=== PATIENT | male | born 1975 | race Caucasian/White ===

== ENCOUNTER 2017-12-27 08:03 | Emergency (ER) | payer MEDICAID ==
--- NOTE | 2017-12-27 08:22 | EDM.PDOC ---
<Mainor De Paz M - Last Filed: 12/27/17 08:29> ED HPI GENERAL MEDICAL PROBLEM - General Stated Complaint: CHEST PAIN Time Seen by Provider: 12/27/17 08:03 Source of Information: Reports: Patient, Family History Limitations: Reports: No Limitations - History of Present Illness INITIAL COMMENTS - FREE TEXT/NARRATIVE: 42 y.o.wm with a H/O Non Hodgkin's lymphoma Stage 4, came to the ed with his family due to left ant chest wall pain and abs. pain. Pt is seen by an Oncologist at [facility] in [place]. Last BM this morning, no N/V. Pt feels weak and had poor PO intake. Pt is a poor historian. Onset Date: 12/26/17 Onset Time: 07:00 Duration: Hour(s):, Intermittent Location: Reports: Chest (left ant chest wall), Abdomen Quality: Reports: Ache, Burning, Dull, Pressure, Same as Previous Episode Severity: Moderate Improves with: Reports: Rest Worsens with: Reports: Movement Context: Reports: Sick Contact Associated Symptoms: Reports: Chest Pain, Weakness - Related Data Allergies Allergy/AdvReac Type Severity Reaction Status Date / Time cephalexin [From Keflex] Allergy Swelling Verified 12/27/17 08:56 Home Meds: Home Meds Gemfibrozil 600 mg PO BID 10/05/16 [History] buPROPion [Wellbutrin] 100 mg PO BID 10/05/16 [History] ClonazePAM [KlonoPIN] 0.5 mg PO TID 12/27/17 [History] Omeprazole 20 mg PO DAILY 12/27/17 [History] PARoxetine [Paxil] 20 mg PO BID 12/27/17 [History] QUEtiapine [SEROquel XR] 50 mg PO BID PRN 12/27/17 [History] hydrOXYzine HCl [hydrOXYzine] 50 mg PO TID PRN 12/27/17 [History] lamoTRIgine 100 mg PO BEDTIME 12/27/17 [History] lamoTRIgine 200 mg PO 08,17 12/27/17 [History] traMADol HCl [Tramadol HCl] 50 mg PO QID #12 tablet 12/27/17 [Rx] Past Medical History Cardiovascular History: Reports: High Cholesterol, Hypertension Gastrointestinal History: Reports: GERD Musculoskeletal History: Reports: Fracture Psychiatric History: Reports: Anxiety, Depression, Psych Hospitalization(s) Endocrine/Metabolic History: Reports: Obesity/BMI 30+ - Infectious Disease History Infectious Disease History: Reports: Chicken Pox - Past Surgical History Musculoskeletal Surgical History: Reports: Other (See Below) Social & Family History - Tobacco Use Smoking Status *Q: Current Every Day Smoker Years of Tobacco use: 21 Packs/Tins Daily: 2 - Caffeine Use Caffeine Use: Reports: Coffee, Soda - Recreational Drug Use Recreational Drug Use: No ED ROS GENERAL - Review of Systems Review Of Systems: See Below Constitutional: Reports: Weakness HEENT: Reports: No Symptoms Respiratory: Reports: Pleuritic Chest Pain Cardiovascular: Reports: Chest Pain Endocrine: Reports: No Symptoms GI/Abdominal: Reports: Abdominal Pain, Constipation : Reports: No Symptoms Musculoskeletal: Reports: No Symptoms Skin: Reports: No Symptoms Neurological: Reports: No Symptoms Psychiatric: Reports: No Symptoms Hematologic/Lymphatic: Reports: No Symptoms Immunologic: Reports: No Symptoms EKG INTERPRETATION EKG Date: 12/27/17 Time: 08:20 Rhythm: NSR Rate (Beats/Min): 85 [place]: Normal P-Wave: Present QRS: Normal ST-T: Normal QT: Normal Comparison: NA - No Prior EKG Course - Vital Signs Text/Narrative:: : 42 y.o.wm with a H/O Non Hodgkin's lymphoma Stage 4, came to the ed with his family due to left ant chest wall pain and abs. pain. Pt is seen by an Oncologist at [facility] in [place]. Last BM this morning, no N/V. Pt feels weak and had poor PO intake. Pt is a poor historian. Impression: Pleuritic chest pain, abd.pain Pt was signed out to Dr. Vasquez at 9 am due to shift changes, pending labs/ imaging/tx Last Recorded V/S: Last Vital Signs Temp 36.4 C 12/27/17 08:03 Pulse 93 12/27/17 08:03 Resp 18 12/27/17 08:03 BP 129/99 H 12/27/17 08:03 Pulse Ox 96 12/27/17 08:03 - Orders/Labs/Meds Orders: Active Orders 24 hr Category Date Time Status Abdomen 2V AP Flat Upright [CR] Stat Exams 12/27/17 08:13 Taken Chest 2V [CR] Stat Exams 12/27/17 08:13 Taken Sodium Chloride 0.9% [Saline Flush] Med 12/27/17 08:29 Active 10 ml FLUSH ASDIRECTED PRN Saline Lock Insert [OM.PC] Routine Oth 12/27/17 08:29 Ordered EKG 12 Lead [EK] Routine Ther 12/27/17 08:13 Ordered Medication Orders Sodium Chloride (Saline Flush) 10 ml FLUSH ASDIRECTED PRN PRN Reason: Keep Vein Open Last Admin: 12/27/17 08:29 Dose: 10 ml Labs: Laboratory Tests 12/27/17 12/27/17 12/27/17 Range/Units 08:30 08:30 08:30 WBC 7.6 (4.5-12.0) X10-3/uL RBC 5.98 H (4.30-5.75) x10(6)uL Hgb 14.8 (11.5-15.5) g/dL Hct 45.4 (30.0-51.3) % MCV 75.9 L (80-96) fL MCH 24.7 L (27.7-33.6) pg MCHC 32.6 (32.2-35.4) g/dL RDW 13.5 (11.5-15.5) % Plt Count 367 (125-369) X10(3)uL MPV 7.1 L (7.4-10.4) fL Neut % (Auto) 74.7 (46-82) % Lymph % (Auto) 13.5 (13-37) % Barry % (Auto) 5.3 (4-12) % Eos % (Auto) 6 H (1.0-5.0) % Baso % (Auto) 0 (0-2) % Neut # (Auto) 5.7 (1.6-8.3) # Lymph # (Auto) 1.0 (0.6-5.0) # Barry # (Auto) 0.4 (0.0-1.3) # Eos # (Auto) 0.5 (0.0-0.8) # Baso # (Auto) 0.0 (0.0-0.2) # Sodium 140 (135-145) mmol/L Potassium 4.3 (3.5-5.3) mmol/L Chloride 102 (100-110) mmol/L Carbon Dioxide 28 (21-32) mmol/L BUN 15 (7-18) mg/dL Creatinine 1.4 H (0.70-1.30) mg/dL Est Cr Clr Drug Dosing TNP Estimated GFR (MDRD) 55 L (>60) BUN/Creatinine Ratio 10.7 (9-20) Glucose 165 H (80-116) mg/dL Calcium 9.2 (8.6-10.2) mg/dL Total Bilirubin 0.3 (0.1-1.3) mg/dL Direct Bilirubin 0.11 (0.10-0.20) mg/dL AST 73 H (5-25) IU/L ALT 108 H (12-36) U/L Alkaline Phosphatase 115 H (56-112) IU/L Creatine Kinase 154 (60-160) IU/L Troponin I < 0.017 L (<0.017-0.056) ng/mL Total Protein 7.5 (6.0-8.0) g/dL Albumin 3.8 (3.5-5.2) g/dL Urine Opiates Screen (NEGATIVE) Ur Oxycodone Screen (NEGATIVE) Ur Propoxyphene Screen (NEGATIVE) Ur Barbituates Screen (NEGATIVE) Ur Tricyclics Screen (NEGATIVE) Ur Phencyclidine Scrn (NEGATIVE) Ur Amphetamine Screen (NEGATIVE) Urine MDMA Screen (NEGATIVE) U Benzodiazepines Scrn (NEGATIVE) U Cocaine Metab Screen (NEGATIVE) U Marijuana (THC) Screen (NEGATIVE) Ethyl Alcohol < 0.03 (<0.03) % 12/27/17 Range/Units 09:57 WBC (4.5-12.0) X10-3/uL RBC (4.30-5.75) x10(6)uL Hgb (11.5-15.5) g/dL Hct (30.0-51.3) % MCV (80-96) fL MCH (27.7-33.6) pg MCHC (32.2-35.4) g/dL RDW (11.5-15.5) % Plt Count (125-369) X10(3)uL MPV (7.4-10.4) fL Neut % (Auto) (46-82) % Lymph % (Auto) (13-37) % Barry % (Auto) (4-12) % Eos % (Auto) (1.0-5.0) % Baso % (Auto) (0-2) % Neut # (Auto) (1.6-8.3) # Lymph # (Auto) (0.6-5.0) # Barry # (Auto) (0.0-1.3) # Eos # (Auto) (0.0-0.8) # Baso # (Auto) (0.0-0.2) # Sodium (135-145) mmol/L Potassium (3.5-5.3) mmol/L Chloride (100-110) mmol/L Carbon Dioxide (21-32) mmol/L BUN (7-18) mg/dL Creatinine (0.70-1.30) mg/dL Est Cr Clr Drug Dosing Estimated GFR (MDRD) (>60) BUN/Creatinine Ratio (9-20) Glucose (80-116) mg/dL Calcium (8.6-10.2) mg/dL Total Bilirubin (0.1-1.3) mg/dL Direct Bilirubin (0.10-0.20) mg/dL AST (5-25) IU/L ALT (12-36) U/L Alkaline Phosphatase (56-112) IU/L Creatine Kinase (60-160) IU/L Troponin I (<0.017-0.056) ng/mL Total Protein (6.0-8.0) g/dL Albumin (3.5-5.2) g/dL Urine Opiates Screen Positive H (NEGATIVE) Ur Oxycodone Screen Negative (NEGATIVE) Ur Propoxyphene Screen Negative (NEGATIVE) Ur Barbituates Screen Negative (NEGATIVE) Ur Tricyclics Screen Positive H (NEGATIVE) Ur Phencyclidine Scrn Negative (NEGATIVE) Ur Amphetamine Screen Negative (NEGATIVE) Urine MDMA Screen Negative (NEGATIVE) U Benzodiazepines Scrn Positive H (NEGATIVE) U Cocaine Metab Screen Negative (NEGATIVE) U Marijuana (THC) Screen Positive H (NEGATIVE) Ethyl Alcohol (<0.03) % Meds: Medications Generic Name Dose Route Start Last Admin Trade Name Freq PRN Reason Stop Dose Admin Sodium Chloride 10 ml 12/27/17 08:29 12/27/17 08:29 Saline Flush FLUSH 10 ml ASDIRECTED PRN Administration Keep Vein Open Discontinued Medications Generic Name Dose Route Start Last Admin Trade Name Freq PRN Reason Stop Dose Admin Ketorolac Tromethamine 30 mg 12/27/17 08:13 12/27/17 08:26 Toradol IVPUSH 12/27/17 08:14 30 mg ONETIME ONE Administration Departure - Departure Disposition: Home, Self-Care 01 Clinical Impression: Muscle strain of chest wall - Discharge Information Prescriptions: traMADol HCl [Tramadol HCl] 50 mg PO QID #12 tablet Instructions: Thoracic Strain, Lowc-el-Gmps Referrals: Dennis Leonard PA-C [Primary Care Provider] - Forms: ED Return to Work/School Form Additional Instructions: For pain and inflammation, take ibuprofen 200 mg 3 tabs and acetaminophen 325 mg 2 tabs 4 times a day. For pain, take tramadol 50 mg 1 tab 4 times a day. No alcohol. Return to work in 3 days. Use heat for 10 minutes 4 times a day for 2 days, longer if needed. See your doctor in 2 days. Return to ED if you are feeling worse. Call your Physician or Return to Emergency Department if: * Your condition worsens in any way. * You develop fever greater than 100.4. * You have vomitting that does not stop with medications. * You have pain that is not controlled with medications. <Ciaran Vasquez - Last Filed: 12/27/17 10:35> ED HPI GENERAL MEDICAL PROBLEM - History of Present Illness INITIAL COMMENTS - FREE TEXT/NARRATIVE: pt seen and evaluated by Dr De Paz, I was asked to f/u at change of shift with XR of chest and abd which are neg pt dx'ed with Stage 4 non Hodgkin's lymphoma in early 2016, tx with CT and RT which was completed 3m ago. Pt states the lymphoma was in his spine and that he had 8 injections of chemo into his spine, that it was not in his chest and abd. He has had recent MRI and PET scan with his oncologist, Dr Silver, whom he last saw 3w ago. pt saw PCP Dr Shahram Robbins in [facility] who did a CxR for a cough, reported as neg. Pt seen here in ED 10/09 with cough that resolved and then came back more recently. 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, missed worked yesterday, off until 2d from now sharp pain with DB has been at L lateral lower hemothorax, tender to touch ED EXAM, GENERAL - Physical Exam Exam: See Below Exam Limited By: No Limitations General Appearance: Alert, WD/WN, No Apparent Distress Ears: Normal External Exam Nose: Normal Inspection, Normal Mucosa, No Blood Throat/Mouth: Normal Inspection, Normal Lips, Normal Teeth, Normal Gums, Normal Oropharynx, Normal Voice, No Airway Compromise Head: Atraumatic, Normocephalic Neck: Normal Inspection, Supple, Non-Tender, Full Range of Motion Respiratory/Chest: No Respiratory Distress, Lungs Clear, Normal Breath Sounds, No Accessory Muscle Use, Other (1+ tender of L lower hemithorax at AAL up / , not localized, some discomfort with change in position) Cardiovascular: Normal Peripheral Pulses, Regular Rate, Rhythm, No Edema, No Gallop, No JVD, Other (2/6 MARINA at [facility]) GI/Abdominal: Normal Bowel Sounds, Soft, Non-Tender, No Organomegaly, No Distention Back Exam: Normal Inspection, Full Range of Motion, NT Extremities: Normal Inspection, Normal Range of Motion, Non-Tender, No Pedal Edema Neurological: Alert, Oriented, CN II-XII Intact, Normal Cognition, No Motor/ Sensory Deficits Psychiatric: Normal Affect Skin Exam: Warm, Dry, Intact, Normal Color, No Rash Departure - Departure Time of Disposition: 10:31 Condition: Good
[2017-12-27] MEDS: Ketorolac 30 MG/ML SDV IVPUSH ONE (08:26)
[2017-12-27] MEDS: Sodium Chloride 0.9% 10 ML Syringe FLUSH PRN (08:29)
[2017-12-27 11:17] VITALS: BP 130/106
--- NOTE | 2017-12-27 15:18 | CR ---
INDICATION: Chest pain. CHEST: PA and lateral views of the chest 12/27/2017 were compared with 2015, again revealing slightly prominent AP diameter and slightly flattened diaphragm leaf on the lateral view, which should be correlated clinically. No definite active infiltrate or effusion could be identified. No free air is noted under the hemidiaphragm leaves. Overlying EKG leads are noted. The heart and mediastinum, as well as the bony thorax, were unremarkable. IMPRESSION: No definite active disease - question a mild degree of obstructive airway disease - correlate clinically. MTDD
--- NOTE | 2017-12-27 15:21 | CR ---
INDICATION: Pain. ABDOMEN: Eight views of the abdomen in supine and upright projections revealed a mild to moderate dextroconcave scoliosis of the lower middle lumbar spine. The pattern of gas and feces is nonspecific without evidence of free air or obstruction. No organomegaly, mass lesions, or pathologic calcifications were identified. Mass density in the lower pelvis is compatible with distended urinary bladder - correlate clinically. IMPRESSION: 1. Nonacute abdomen. 2. Scoliosis lumbar spine. MTDD
== END 2017-12-27 10:45 | disposition home or self-care (01) ==
LOC: FB.ED 08:03
DX: S29.011A Strain of muscle and tendon of front wall of thorax, initial encounter (principal); K21.9 Gastro-esophageal reflux disease without esophagitis; E66.9 Obesity, unspecified; E78.00 Pure hypercholesterolemia, unspecified; I10 Essential (primary) hypertension; Z88.1 Allergy status to other antibiotic agents; Z79.899 Other long term (current) drug therapy; X58.XXXA Exposure to other specified factors, initial encounter
CPT/HCPCS: 36415; 71046; 74019; 80048; 80076; 80305; 82550; 84484; 85025; 93005; 96374; 99284; G0480; J1885; J7050

== ENCOUNTER 2021-03-23 10:35 | Emergency (ER) | payer MEDICAID ==
[2021-03-23] MEDS ORDERED: Sodium Chloride 0.9% 10 ML Syringe FLUSH PRN (10:39)
[2021-03-23] MEDS ORDERED: 50% Dextrose in Water 50 ML Syringe IVPUSH PRN (10:47)
[2021-03-23] MEDS ORDERED: Glucagon,Human Recombinant 1 MG Vial IM PRN (10:47)
[2021-03-23] MEDS ORDERED: Insulin Lispro 100 Unit/ML 3 ML KwikPen SUBCUT ONE (10:50)
[2021-03-23] MEDS ORDERED: Sodium Chloride 0.9% 1,000 ML IV ONE (10:54)
--- NOTE | 2021-03-23 11:01 | EDM.PDOC ---
ED HPI GENERAL MEDICAL PROBLEM - General Chief Complaint: General Stated Complaint: INSULIN Time Seen by Provider: 03/23/21 11:01 Source of Information: Reports: Patient History Limitations: Reports: No Limitations - History of Present Illness INITIAL COMMENTS - FREE TEXT/NARRATIVE: Patient has a h/o T2DM. He ran out of Novolog today, usually takes 12-4 units SC tid. Patient gave himself the last 3 units this morning. His blood sugar was @500 today. Patient endorses dizziness, blurred vision, and tinnitus. He does have refills on the Novolog but pharmacy is closed today. Denies chest pain, sob, fevers, abd pain, or N/V/D. Onset: Today - Related Data Allergies Allergy/AdvReac Type Severity Reaction Status Date / Time cephalexin [From Keflex] Allergy Swelling Verified 12/27/17 08:56 Home Meds: Home Meds Gemfibrozil 600 mg PO BID 10/05/16 [History] buPROPion [Wellbutrin] 100 mg PO BID 10/05/16 [History] ClonazePAM [KlonoPIN] 0.5 mg PO TID 12/27/17 [History] Omeprazole 20 mg PO DAILY 12/27/17 [History] PARoxetine [Paxil] 20 mg PO BID 12/27/17 [History] QUEtiapine [SEROquel XR] 50 mg PO BID PRN 12/27/17 [History] hydrOXYzine HCL [hydrOXYzine] 50 mg PO TID PRN 12/27/17 [History] lamoTRIgine 100 mg PO BEDTIME 12/27/17 [History] lamoTRIgine 200 mg PO 08,17 12/27/17 [History] traMADol HCl [Tramadol HCl] 50 mg PO QID #12 tablet 12/27/17 [Rx] Past Medical History Cardiovascular History: Reports: High Cholesterol, Hypertension Gastrointestinal History: Reports: GERD Musculoskeletal History: Reports: Fracture Psychiatric History: Reports: Anxiety, Depression, Psych Hospitalization(s) Endocrine/Metabolic History: Reports: Diabetes, Type II, Obesity/BMI 30+ Oncologic (Cancer) History: Reports: Non-Hodgkin's Lymphoma, Other (See Below) Other Oncologic History: Stage 4 - Infectious Disease History Infectious Disease History: Reports: Chicken Pox - Past Surgical History Musculoskeletal Surgical History: Reports: Other (See Below) Other Musculoskeletal Surgeries/Procedures:: back surgery Social & Family History - Family History Family Medical History: No Pertinent Family History - Caffeine Use Caffeine Use: Reports: Coffee, Soda ED ROS GENERAL - Review of Systems Review Of Systems: Comprehensive ROS is negative, except as noted in HPI. ED EXAM, GENERAL - Physical Exam Exam: See Below Exam Limited By: No Limitations General Appearance: Alert, WD/WN, No Apparent Distress Eye Exam: Bilateral Eye: EOMI, PERRL Nose: Normal Inspection Throat/Mouth: No Airway Compromise Head: Atraumatic, Normocephalic Neck: Full Range of Motion Respiratory/Chest: No Respiratory Distress, Lungs Clear, Normal Breath Sounds Cardiovascular: Regular Rate, Rhythm, No Murmur Extremities: Normal Range of Motion Neurological: Alert, Oriented, Normal Cognition Psychiatric: Normal Affect, Normal Mood Skin Exam: Warm, Dry, Intact Course - Orders/Labs/Meds Orders: Active Orders 24 hr Category Date Time Status Accu Check [Blood Glucose Check, Bedside] [RC] Q1H Care 03/23/21 10:39 Active Dextrose 50% in Water Med 03/23/21 10:47 Active 50 ml IVPUSH ASDIRECTED PRN Glucagon,Human Recombinant [GlucaGen] Med 03/23/21 10:47 Active 1 mg IM ASDIRECTED PRN Sodium Chloride 0.9% [Saline Flush] Med 03/23/21 10:39 Active 10 ml FLUSH ASDIRECTED PRN Saline Lock Insert [OM.PC] Routine Oth 03/23/21 10:39 Ordered Medication Orders Dextrose/Water (50% Dextrose In Water 50 Ml Syringe) 50 ml IVPUSH ASDIRECTED PRN PRN Reason: Hypoglycemia Glucagon (Glucagon,Human Recombinant 1 Mg Vial) 1 mg IM ASDIRECTED PRN PRN Reason: Hypoglycemia Sodium Chloride (Sodium Chloride 0.9% 10 Ml Syringe) 10 ml FLUSH ASDIRECTED PRN PRN Reason: Keep Vein Open Labs: Laboratory Tests 03/23/21 03/23/21 03/23/21 Range/Units 10:41 10:50 10:50 WBC 8.1 (3.2-10.1) x10-3/uL RBC 5.11 (3.90-5.90) x10(6)uL Hgb 15.2 (12.9-17.7) g/dL Hct 45.2 (38.3-50.1) % MCV 88.6 (80.8-98.7) fL MCH 29.8 (27.0-33.3) pg MCHC 33.7 (28.7-35.3) g/dL RDW 15.9 H (12.4-15.0) % Plt Count 346 (117-477) x10(3)uL MPV 8.1 (6.7-11.0) fL Neut % (Auto) 69.2 (40.3-71.8) % Lymph % (Auto) 17.2 (15.8-45.3) % [place] % (Auto) 7.4 (5.5-15.2) % Eos % (Auto) 5.0 (0.1-6.8) % Baso % (Auto) 1.2 (0.3-3.8) % Neut # (Auto) 5.6 (1.7-6.9) x10-3/uL Lymph # (Auto) 1.4 (0.5-4.5) x10-3/uL [place] # (Auto) 0.6 (0.0-1.2) x10-3/uL Eos # (Auto) 0.4 (0.0-0.6) x10-3/uL Baso # (Auto) 0.1 (0.0-0.3) x10-3/uL Sodium 131 L (135-145) mmol/L Potassium 4.9 (3.5-5.3) mmol/L Chloride 94 L D (100-110) mmol/L Carbon Dioxide 29 (21-32) mmol/L BUN 13 (7-18) mg/dL Creatinine 1.2 (0.70-1.30) mg/dL Est Cr Clr Drug Dosing TNP Estimated GFR (MDRD) > 60 (>60) BUN/Creatinine Ratio 10.8 (9-20) Glucose 573 H* D (80-116) mg/dL POC Glucose 553 H* (80-116) mg/dL Calcium 9.3 (8.6-10.2) mg/dL 03/23/21 Range/Units 12:18 WBC (3.2-10.1) x10-3/uL RBC (3.90-5.90) x10(6)uL Hgb (12.9-17.7) g/dL Hct (38.3-50.1) % MCV (80.8-98.7) fL MCH (27.0-33.3) pg MCHC (28.7-35.3) g/dL RDW (12.4-15.0) % Plt Count (117-477) x10(3)uL MPV (6.7-11.0) fL Neut % (Auto) (40.3-71.8) % Lymph % (Auto) (15.8-45.3) % [place] % (Auto) (5.5-15.2) % Eos % (Auto) (0.1-6.8) % Baso % (Auto) (0.3-3.8) % Neut # (Auto) (1.7-6.9) x10-3/uL Lymph # (Auto) (0.5-4.5) x10-3/uL [place] # (Auto) (0.0-1.2) x10-3/uL Eos # (Auto) (0.0-0.6) x10-3/uL Baso # (Auto) (0.0-0.3) x10-3/uL Sodium (135-145) mmol/L Potassium (3.5-5.3) mmol/L Chloride (100-110) mmol/L Carbon Dioxide (21-32) mmol/L BUN (7-18) mg/dL Creatinine (0.70-1.30) mg/dL Est Cr Clr Drug Dosing Estimated GFR (MDRD) (>60) BUN/Creatinine Ratio (9-20) Glucose (80-116) mg/dL POC Glucose 375 H D (80-116) mg/dL Calcium (8.6-10.2) mg/dL Meds: Medications Generic Name Dose Route Start Last Admin Trade Name Freq PRN Reason Stop Dose Admin Dextrose/Water 50 ml 03/23/21 10:47 50% Dextrose In Water 50 Ml Syringe IVPUSH ASDIRECTED PRN Hypoglycemia Glucagon 1 mg 03/23/21 10:47 Glucagon,Human Recombinant 1 Mg Vial IM ASDIRECTED PRN Hypoglycemia Sodium Chloride 10 ml 03/23/21 10:39 Sodium Chloride 0.9% 10 Ml Syringe FLUSH ASDIRECTED PRN Keep Vein Open Discontinued Medications Generic Name Dose Route Start Last Admin Trade Name Freq PRN Reason Stop Dose Admin Sodium Chloride 1,000 mls @ 999 mls/hr 03/23/21 10:54 03/23/21 11:25 Normal Saline IV 03/23/21 11:54 999 mls/hr .BOLUS ONE Administration Insulin Human Lispro 14 unit 03/23/21 10:50 03/23/21 10:53 Insulin Lispro 100 Unit/Ml 3 Ml Kwikpen SUBCUT 03/23/21 10:51 14 unit .ONCE ONE Administration - Re-Assessments/Exams Free Text/Narrative Re-Assessment/Exam: 03/23/21 12:21 Blood sugar improved to 375. Sent home with the Humalog pen and needles. Departure - Departure Time of Disposition: 12:21 Disposition: Home, Self-Care 01 Condition: Good Clinical Impression: Hyperglycemia due to type 2 diabetes mellitus Qualifiers: Diabetes mellitus meterman insulin use: with alf use Qualified Code(s): E11.65 - Type 2 diabetes mellitus with hyperglycemia; Z79.4 - USP (current) use of insulin - Discharge Information *PRESCRIPTION DRUG MONITORING PROGRAM REVIEWED*: No *COPY OF PRESCRIPTION DRUG MONITORING REPORT IN PATIENT EDGARDO: Not Applicable Instructions: Hyperglycemia, [id number] Forms: ED Department Discharge Additional Instructions: Use the Humalog pen as you would Novolog. Follow up as needed. - My Orders Last 24 Hours: My Active Orders 03/23/21 10:39 Accu Check [Blood Glucose Check, Bedside] [RC] Q1H Sodium Chloride 0.9% [Saline Flush] 10 ml FLUSH ASDIRECTED PRN Saline Lock Insert [OM.PC] Routine 03/23/21 10:47 Dextrose 50% in Water 50 ml IVPUSH ASDIRECTED PRN Glucagon,Human Recombinant [GlucaGen] 1 mg IM ASDIRECTED PRN - Assessment/Plan Last 24 Hours: My Active Orders 03/23/21 10:39 Accu Check [Blood Glucose Check, Bedside] [RC] Q1H Sodium Chloride 0.9% [Saline Flush] 10 ml FLUSH ASDIRECTED PRN Saline Lock Insert [OM.PC] Routine 03/23/21 10:47 Dextrose 50% in Water 50 ml IVPUSH ASDIRECTED PRN Glucagon,Human Recombinant [GlucaGen] 1 mg IM ASDIRECTED PRN
[2021-03-23 12:29] VITALS: BP 146/96; PULSE 84
== END 2021-03-23 12:39 | disposition home or self-care (01) ==
LOC: FB.ED 10:35
DX: E11.65 Type 2 diabetes mellitus with hyperglycemia (principal); E78.00 Pure hypercholesterolemia, unspecified; I10 Essential (primary) hypertension; K21.9 Gastro-esophageal reflux disease without esophagitis; E66.9 Obesity, unspecified; Z68.30 Body mass index [BMI] 30.0-30.9, adult; Z88.1 Allergy status to other antibiotic agents; Z79.899 Other long term (current) drug therapy; Z79.4 Long term (current) use of insulin
CPT/HCPCS: 36415; 80048; 82947; 85025; 99284; J1815; J7030

== ENCOUNTER 2022-01-30 09:30 | Emergency (ER) | payer MEDICAID ==
[2022-01-30] MEDS ORDERED: Acetaminophen/HYDROcodone 325-5 MG Tab PO ONE (09:51)
[2022-01-30] MEDS ORDERED: Aspirin 81 MG Tab.Chew PO ONE (09:53)
[2022-01-30 10:29] VITALS: PULSE 111
[2022-01-30] MEDS ORDERED: Losartan 50 MG Tab PO ONE (10:46)
[2022-01-30 10:55] VITALS: BP 147/102
[2022-01-30] MEDS ORDERED: cefTRIAXone 2 GM in Sodium Chloride 0.9% 50 ML IV ONE (11:00)
[2022-01-30] MEDS ORDERED: Sodium Chloride 0.9% 500 ML IV ONE (11:01)
[2022-01-30 11:44] LABS: CORONAVIRUS COVID-19 NAA NEGATIVE (NEGATIVE)
== END 2022-01-30 12:27 | disposition home or self-care (01) ==
LOC: FB.ED 09:30
DX: N39.0 Urinary tract infection, site not specified (principal); R31.9 Hematuria, unspecified; R81 Glycosuria; F41.9 Anxiety disorder, unspecified; D72.829 Elevated white blood cell count, unspecified; E78.00 Pure hypercholesterolemia, unspecified; I10 Essential (primary) hypertension; K21.9 Gastro-esophageal reflux disease without esophagitis; E11.9 Type 2 diabetes mellitus without complications; Z91.030 Bee allergy status; Z88.1 Allergy status to other antibiotic agents; Z79.4 Long term (current) use of insulin; Z20.822 Contact with and (suspected) exposure to COVID-19
CPT/HCPCS: 0240U; 36415; 71045; 80053; 80307; 81001; 83605; 84484; 85025; 85379; 87040; 87086; 87088; 87186; 93005; 93010; 96374; 99284; 99285-25; A9270-GY; J0696; J3490; J7040

== ENCOUNTER 2025-01-09 12:04 | Emergency (ER) | payer MEDICAID ==
[2025-01-09] MEDS ORDERED: Sodium Chloride 0.9% 10 ML Syringe FLUSH PRN (12:18)
[2025-01-09] MEDS: Sodium Chloride 0.9% 1,000 ML IV SCH (12:31)
[2025-01-09] MEDS: Albuterol/Ipratropium 3.0-0.5 MG/3 ML Neb Soln NEB ONE (12:32)
[2025-01-09] MEDS: methylPREDNISolone Sodium Succinate 125 MG/2 ML SDV IVPUSH ONE (12:32)
[2025-01-09 12:41] LABS: BASOPHILS ABSOLUTE AUTO 0.1 x10-3/uL (0.0-0.3); BASOPHILS PERCENT AUTO 1.1 % (0.3-3.8); EOSINOPHILS ABSOLUTE AUTO 0.2 x10-3/uL (0.0-0.6); EOSINOPHILS PERCENT AUTO 1.8 % (0.1-6.8); HEMATOCRIT 45.8 % (38.3-50.1); HEMOGLOBIN 15.7 g/dL (12.9-17.7); LYMPHOCYTES ABSOLUTE AUTO 1.6 x10-3/uL (0.5-4.5); LYMPHOCYTES PERCENT AUTO 17.8 % (15.8-45.3); MEAN CORPUSCULAR HEMOGLOBIN 30.4 pg (27.0-33.3); MEAN CORPUSCULAR HGB CONC 34.3 g/dL (28.7-35.3); MEAN CORPUSCULAR VOLUME 88.6 fL (80.8-98.7); MEAN PLATELET VOLUME 7.3 fL (6.7-11.0); MONOCYTES ABSOLUTE AUTO 0.6 x10-3/uL (0.0-1.2); MONOCYTES PERCENT AUTO 6.5 % (5.5-15.2); NEUTROPHILS ABSOLUTE AUTO 6.4 x10-3/uL (1.7-6.9); NEUTROPHILS PERCENT AUTO 72.8 % (40.3-71.8); PLATELET COUNT,PLT 272 x10(3)uL (117-477); RED BLOOD CELL COUNT 5.17 x10(6)uL (3.90-5.90); RED CELL DISTRIBUTION WIDTH 15.8 % (12.4-15.0); WHITE BLOOD CELL COUNT,WBC 8.8 x10-3/uL (3.2-10.1)
[2025-01-09 12:43] LABS: BLOOD UREA NITROGEN,BUN 12 mg/dL (7-18); BUN/CREATININE RATIO 9.2 (9-20); CALCIUM 8.9 mg/dL (8.6-10.2); CARBON DIOXIDE,CO2 30 mmol/L (21-32); CHLORIDE,CL 101 mmol/L (100-110); CREATININE 1.3 mg/dL (0.70-1.30); EST CRCL DRUG DOSING (CG) 83.46 mL/min; ESTIMATED GFR 67 mL/min (>60); GLUCOSE RANDOM 218 mg/dL (80-116); POTASSIUM,K 4.7 mmol/L (3.5-5.3); SODIUM,NA 138 mmol/L (135-145)
[2025-01-09 12:49] LABS: ALANINE AMINOTRANSFERASE,ALT 31 U/L (12-36); ALBUMIN 3.6 g/dL (3.5-5.2); ALKALINE PHOSPHATASE 95 IU/L (56-112); ASPARTATE AMNIOTRANSFERASE,AST 20 IU/L (5-25); BILIRUBIN TOTAL 0.7 mg/dL (0.1-1.3); PROTEIN TOTAL,TP 7.4 g/dL (6.0-8.0)
[2025-01-09] MEDS: Ketorolac 30 MG/ML SDV IVPUSH ONE (13:31)
[2025-01-09 13:57] VITALS: PULSE 86
[2025-01-09 13:59] VITALS: BP 107/80
== END 2025-01-09 13:45 | disposition home or self-care (01) ==
LOC: FB.ED 12:04
DX: M94.0 Chondrocostal junction syndrome [Tietze] (principal); R07.89 Other chest pain; I10 Essential (primary) hypertension; E78.00 Pure hypercholesterolemia, unspecified; J44.9 Chronic obstructive pulmonary disease, unspecified; E11.9 Type 2 diabetes mellitus without complications; F17.210 Nicotine dependence, cigarettes, uncomplicated; Z91.030 Bee allergy status; Z88.1 Allergy status to other antibiotic agents; Z88.8 Allergy status to other drugs, medicaments and biological substances; Z79.899 Other long term (current) drug therapy; Z79.4 Long term (current) use of insulin; Z79.84 Long term (current) use of oral hypoglycemic drugs; Z79.51 Long term (current) use of inhaled steroids
CPT/HCPCS: 36415; 71045; 80053; 83880; 84484; 85025; 93005; 93010; 94640; 96374; 96375; 99283; 99285-25; A9270-GY; J1885; J2919; J7030